=== PATIENT | male | born 1970 | race Caucasian/White ===

== ENCOUNTER 2019-04-06 19:39 | Emergency (ER) | payer OTHER ==
--- OUTSIDE RECORDS SUMMARY | 2019-04-06 19:41 | XMS REPORT | Continuity of Care Document ---
:1970 Author Organization [facility] Address [address] [place] [address] Phone Unavailable Care Team Providers Name Role Phone OTHER, ENTER NAME IN NOTES Primary Care Physician Unavailable Insurance Providers Guarantor Barrett Saucedo Address [address] [place] [address] Email [email or web address] Payer Self Pay Insurance Subscriber's Name Barrett Saucedo Relationship Self / Same As Patient Group Number NA Group Name NA Advance Directives Directive Response Recorded Date/Time Advance Directives No 01/17/15 1:59pm Advance Directive on File No 03/03/19 9:46pm Directive to Physicians/Living Will No 01/17/15 1:59pm Health Care Proxy No 01/17/15 1:59pm Name of Surrogate/Decision Maker NA 03/03/19 10:39pm Organ Donor No 01/17/15 1:59pm Medical Power of Crucible Furnace Tender No 01/17/15 1:59pm Patient/Family Given Education Material R/T Directives? Y - VV 03/03/19 10: 39pm Chief Complaint and Reason for Visit Chief Complaint HEENTL Reason for Visit Dental caries Dental abscess Pain, dental Problems Medical Problem Onset Date Status Abscess of nasal cavity Unknown Acute Backache Unknown Acute Chest pain Unknown Acute Pulmonary nodule Unknown Acute Past Problems Medical Problem Onset Date Status Acute gastritis without bleeding Unknown Acute Anxiety in acute stress reaction Unknown Acute Dental abscess Unknown Acute Dental caries Unknown Acute Pain, dental Unknown Acute Medications No medication information available. Social History Social History Problem Response Recorded Date/Time Onset Date Status Hx Physical Abuse No 03/03/2019 9:46pm Not Applicable Not Applicable Smoking Status Start Date Stop Date Current every day smoker Hospital Discharge Instructions No hospital discharge instruction information available. Plan of Care Discharge Date 03/04/19 12:20am Instructions/Education Provided Dental Abscess, [id number] Dental Caries, Adult, Fsem-[id number] Forms Provided Portal Welcome Letter Prescriptions See Medication Section Referrals OTHER,ENTER NAME IN NOTES Additional Instructions/Education GO TO DENTAL SCHOOL OR DENTAL CLINIC IN AM AMOXICILLIN 3 TIMES A DAY NAPROSYN WITH FOOD TWICE A DAY Functional Status No functional status information available. Allergies, Adverse Reactions, Alerts No known allergies. Immunizations No immunization information available. Vital Signs Acute Vital Signs Vital Response Date/Time Blood Pressure 140/84 mm Hg 03/04/2019 12:10am Pulse Pulse Rate (adult) 95 beats per minute (60 - 100) 03/04/2019 12:10am Respiratory Rate 20 breaths per minute (10 - 24) 03/04/2019 12:10am Temperature Source Oral 03/03/2019 9:46pm Height 6 ft 0 in 03/03/2019 9:46pm Weight 185 lb 03/03/2019 9:46pm Body Mass Index 25.1 kg/m^2 03/03/2019 9:46pm Results No relevant diagnostic test, laboratory data and/or discharge summary information available. Procedures No procedure information available. Encounters Encounter Location Arrival/Admit Date Discharge/Depart Date Attending Provider Departed [place] 03/03/19 9:41pm 03/04/19 12:20am [facility] Recent Diagnosis
[2019-04-06] MEDS ORDERED: DIPHENHYDRAMINE 50 MG/ML VIAL ONE (20:41)
[2019-04-06] MEDS ORDERED: ONDANSETRON 4 MG/2 ML VIAL ONE (20:42)
[2019-04-06] MEDS ORDERED: KETOROLAC 30 MG/ML INJ ONE (20:42)
--- NOTE | 2019-04-06 21:15 | RAD REPORT ---
EXAM DESCRIPTION: CT - Head Brain Wo Cont - 04/06/2019 8:39 pm CLINICAL HISTORY: Headache COMPARISON: 2016 TECHNIQUE: Computed axial tomography of the head was obtained. IV contrast was not requested. All CT scans are performed using dose optimization technique as appropriate and may include automated exposure control or mA/KV adjustment according to patient size. FINDINGS: Left parasellar aneurysm clips. Artifact from the clips mildly obscures detail in this re gion An intracranial bleed is not seen . The ventricles are normal in caliber. No extra-axial fluid collection is noted. Fluid within the sinuses/ mastoids is not seen. IMPRESSION: No acute intracranial abnormality is seen.
--- NOTE | 2019-04-06 22:02 | EDPHYS ---
Physician Documentation [facility] Name: Barrett Arias Age: 48 yrs Sex: Male : 1970 Arrival Date: 04/06/2019 Time: 19:43 Bed 30 Private MD: ED Physician Varun Templeton HPI: 04/07 04:39 This 48 yrs old Male presents to ER via Ambulatory with complaints of tw4 Headache. 04:39 The patient complains of pain to the forehead. The patient describes the headache as tw4 aching. Onset: The symptoms/episode began/occurred today. Associated signs and symptoms: The patient has no apparent associated signs or symptoms. Severity of symptoms: At its worst the pain was moderate. Headache History: The patient has had previous headaches and this one is similar to previous episodes. The symptoms are alleviated by nothing. the symptoms are aggravated by nothing. The patient has experienced similar episodes in the past, multiple times, chronically. Historical: - Allergies: 04/06 19:48 Phenergan; aj - Home Meds: 19:48 dilaudid 4 mg [Active]; aj - PMHx: 19:48 brain aneurysm; Hypertension; aj - PSHx: 19:48 brain surgery; aj - Immunization history:: Adult Immunizations up to date. - Social history:: Smoking status: Patient/guardian denies using tobacco. - Ebola Screening: : Patient negative for fever greater than or equal to 101.5 degrees Fahrenheit, and additional compatible Ebola Virus Disease symptoms Patient denies exposure to infectious person Patient denies travel to an Ebola-affected area in the 21 days before illness onset No symptoms or risks identified at this time. ROS: 04/07 04:39 Constitutional: Negative for fever, chills, and weight loss, Eyes: Negative for injury, tw4 pain, redness, and discharge, Cardiovascular: Negative for chest pain, palpitations, and edema, Respiratory: Negative for shortness of breath, cough, wheezing, and pleuritic chest pain, Abdomen/GI: Negative for abdominal pain, nausea, vomiting, diarrhea, and constipation, Back: Negative for injury and pain, MS/Extremity: Negative for injury and deformity. Neuro: Positive for headache, Negative for altered mental status, dizziness, gait disturbance, numbness, seizure activity, speech changes, syncope, near syncope, tinnitus, tremor. Exam: 04:39 Constitutional: This is a well developed, well nourished patient who is awake, alert, tw4 and in no acute distress. Head/Face: Normocephalic, atraumatic. Chest/axilla: Normal chest wall appearance and motion. Nontender with no deformity. No lesions are appreciated. Cardiovascular: Regular rate and rhythm with a normal S1 and S2. No gallops, murmurs, or rubs. Normal PMI, no JVD. No pulse deficits. Respiratory: Lungs have equal breath sounds bilaterally, clear to auscultation and percussion. No rales, rhonchi or wheezes noted. No increased work of breathing, no retractions or nasal flaring. Abdomen/GI: Soft, non-tender, with normal bowel sounds. No distension or tympany. No guarding or rebound. No evidence of tenderness throughout. Back: No spinal tenderness. No costovertebral tenderness. Full range of motion. MS/ Extremity: Pulses equal, no cyanosis. Neurovascular intact. Full, normal range of motion. 04:39 Neuro: Orientation: is normal, Mentation: is normal, Memory: is normal. Vital Signs: 04/06 19:48 BP 142 / 72; Pulse 79; Resp 18; Temp 98.5; Pulse Ox 100% on R/A; Weight 83.91 kg; aj Height 6 ft. 0 in. (182.88 cm); 22:01 BP 148 / 96; Pulse 73; Resp 17 S; Pulse Ox 100% on R/A; jd3 19:48 Body Mass Index 25.09 (83.91 kg, 182.88 cm) aj MDM: 20:31 Patient medically screened. tw4 04/07 04:39 Differential diagnosis: epidural hematoma, hypoglycemia, hyponatremia, meningitis, tw4 meningoencephalitis, migraine, trigeminal neuralgia, uremia. Data reviewed: vital signs, nurses notes. Counseling: I had a detailed discussion with the patient and/or guardian regarding: the historical points, exam findings, and any diagnostic results supporting the discharge/admit diagnosis, lab results, radiology results. Medication response: Toradol partially relieved the patient's pain, Response to treatment: and as a result, I will discharge patient. Special discussion: I discussed with the patient/guardian in detail that at this point there is no indication for admission to the hospital. It is understood, however, that if the symptoms persist or worsen the patient needs to return immediately for re-evaluation. 04/06 20:15 Order name: CT Head Brain wo Cont; Complete Time: 21:35 tw4 04/06 20:18 Order name: IV Saline Lock; Complete Time: 20:34 jd3 Administered Medications: 04/06 20:34 Drug: Benadryl 25 mg Route: IVP; Site: right antecubital; jd3 21:30 Follow up: Response: No adverse reaction jd3 20:34 Drug: Zofran 4 mg Route: IVP; Site: right antecubital; jd3 21:30 Follow up: Response: No adverse reaction jd3 20:35 Drug: TORadol 30 mg Route: IVP; Site: right antecubital; jd3 21:30 Follow up: Response: No adverse reaction jd3 21:58 Not Given (Patient Refused): Fioricet - Esgic 325 mg-40 mg-50 mg 1 tab-caps PO once jd3 Disposition: 04/06/19 22:01 Discharged to Home. Impression: Headache. - Condition is Stable. - Discharge Instructions: General Headache Without Cause. - Prescriptions for Ibuprofen 800 mg Oral Tablet - take 1 tablet by ORAL route every 8 hours As needed take with food; 30 tablet. - Medication Reconciliation Form, Thank You Letter, Antibiotic Education, Prescription Opioid Use form. - Follow up: Private Physician; When: Upon discharge from the Emergency Department; Reason: If symptoms return, Recheck today's complaints, Continuance of care. - Problem is new. - Symptoms have improved. Signatures: Dispatcher [employer] Alexus Zhao RN RN aj Davies, Jonathon, RN RN jd3 Wadley, Terrence, MD MD tw4 Corrections: (The following items were deleted from the chart) 22:12 22:01 04/06/2019 22:01 Discharged to Home. Impression: Headache. Condition is Stable. jd3 Forms are Medication Reconciliation Form, Thank You Letter, Antibiotic Education, Prescription Opioid Use. Follow up: Private Physician; When: Upon discharge from the Emergency Department; Reason: If symptoms return, Recheck today's complaints, Continuance of care. Problem is new. Symptoms have improved. tw4
--- NOTE | 2019-04-06 22:02 | ER ---
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 aj Reports taking Hyrdocodone FACTORY HELPER. Transition of care: patient was not received from another setting of care. Onset of symptoms was April 06, 2019. Risk Assessment: Do you want to hurt yourself or someone else? Patient reports no desire to harm self or others. Initial Sepsis Screen: Does the patient meet any 2 criteria? No. Patient's initial sepsis screen is negative. Does the patient have a suspected source of infection? No. Patient's initial sepsis screen is negative. Care prior to arrival: None. 19:46 Method Of Arrival: Ambulatory 19:46 Acuity: LUDIN 3 Triage Assessment: 19:48 Headache History: The patient has had previous headaches and this one is different than aj previous episodes. General: Appears in no apparent distress. comfortable, Behavior is calm, cooperative, appropriate for age. Pain: Complains of pain in left synagogue. Neuro: Level of Consciousness is awake, alert, obeys commands, Oriented to person, place, time, situation, Appropriate for age. Neuro: Reports headache in left. Respiratory: Airway is patent Respiratory effort is even, unlabored, Respiratory pattern is regular, symmetrical. Derm: Skin is intact, is healthy with good turgor, Skin is pink, warm \T\ dry. normal. 20:38 Pain: Pain at worst was 10 out of 10 on a pain scale. Pain began suddenly, Also jd3 complains of nausea. Historical: - Allergies: 19:48 Phenergan; aj - Home Meds: 19:48 dilaudid 4 mg [Active]; aj - PMHx: 19:48 brain aneurysm; Hypertension; aj - PSHx: 19:48 brain surgery; aj - Immunization history:: Adult Immunizations up to date. - Social history:: Smoking status: Patient/guardian denies using tobacco. - Ebola Screening: : Patient negative for fever greater than or equal to 101.5 degrees Fahrenheit, and additional compatible Ebola Virus Disease symptoms Patient denies exposure to infectious person Patient denies travel to an Ebola-affected area in the 21 days before illness onset No symptoms or risks identified at this time. Screenin:37 Abuse screen: Denies threats or abuse. Nutritional screening: No deficits noted. jd3 Tuberculosis screening: No symptoms or risk factors identified. Fall Risk Ambulatory Aid- None/Bed Rest/Nurse Assist (0 pts). Gait- Normal/Bed Rest/Wheelchair (0 pts) Mental Status- Oriented to own ability (0 pts). Total Miles Fall Scale indicates No Risk (0-24 pts). Assessment: 20:36 General: Appears in no apparent distress. uncomfortable, Behavior is calm, cooperative, jd3 appropriate for age. Pain: Complains of pain in head Quality of pain is described as aching, sharp. Neuro: Level of Consciousness is awake, alert, obeys commands, Oriented to person, place, time, situation, Appropriate for age. Cardiovascular: Capillary refill < 3 seconds Patient's skin is warm and dry. Respiratory: Airway is patent Respiratory effort is even, unlabored, Respiratory pattern is regular, symmetrical. GI: No signs and/or symptoms were reported involving the gastrointestinal system. : No signs and/or symptoms were reported regarding the genitourinary system. EENT: No signs and/or symptoms were reported regarding the EENT system. Derm: Skin is intact, Skin is dry, Skin is normal, Skin temperature is warm. Musculoskeletal: Circulation, motion, and sensation intact. Range of motion: intact in all extremities. 21:35 Reassessment: Patient and/or family updated on plan of care and expected duration. Pain jd3 level reassessed. Patient is alert, oriented x 3, equal unlabored respirations, skin warm/dry/pink. pt reported continued pain in head, provider notified. no new orders at this time. 22:01 Reassessment: Patient appears in no apparent distress at this time. No changes from jd3 previously documented assessment. Patient and/or family updated on plan of care and expected duration. Pain level reassessed. Patient is alert, oriented x 3, equal unlabored respirations, skin warm/dry/pink. 22:11 Reassessment: Patient appears in no apparent distress at this time. Patient and/or jd3 family updated on plan of care and expected duration. Pain level reassessed. Patient is alert, oriented x 3, equal unlabored respirations, skin warm/dry/pink. report understanding of discharge instructions. Vital Signs: 19:48 BP 142 / 72; Pulse 79; Resp 18; Temp 98.5; Pulse Ox 100% on R/A; Weight 83.91 kg; aj Height 6 ft. 0 in. (182.88 cm); 22:01 BP 148 / 96; Pulse 73; Resp 17 S; Pulse Ox 100% on R/A; jd3 19:48 Body Mass Index 25.09 (83.91 kg, 182.88 cm) aj ED Course: 19:43 Patient arrived in ED. aj 19:47 Triage completed. aj 19:48 Arm band placed on left wrist. Patient placed in an exam room. aj 19:49 James Geller, RN is Primary Nurse. la1 19:56 Varun Templeton MD is Attending Physician. tw4 20:[address] mw3 20:25 Inserted saline lock: 20 gauge in right forearm, using aseptic technique. jd3 20:36 Primary Nurse role handed off by James Geller, RN jd3 20:36 Jimbo Alexandra, TANA is Primary Nurse. jd3 20:37 Patient has correct armband on for positive identification. Bed in low position. Call jd3 light in reach. Side rails up X 1. Adult w/ patient. 20:39 CT Head Brain wo Cont In Process Unspecified. EDMS 20:40 CT completed. Patient tolerated procedure well. Patient moved back from CT. mw3 22:03 No provider procedures requiring assistance completed. jd3 22:12 IV discontinued, intact, bleeding controlled, No redness/swelling at site. Pressure jd3 dressing applied. Administered Medications: 20:34 Drug: Benadryl 25 mg Route: IVP; Site: right antecubital; jd3 21:30 Follow up: Response: No adverse reaction jd3 20:34 Drug: Zofran 4 mg Route: IVP; Site: right antecubital; jd3 21:30 Follow up: Response: No adverse reaction jd3 20:35 Drug: TORadol 30 mg Route: IVP; Site: right antecubital; jd3 21:30 Follow up: Response: No adverse reaction jd3 21:58 Not Given (Patient Refused): Fioricet - Esgic 325 mg-40 mg-50 mg 1 tab-caps PO once jd3 Outcome: 22:01 Discharge ordered by . tw4 22:11 Discharged to home ambulatory, with family. jd3 22:11 Condition: stable 22:11 Discharge instructions given to patient, family, Instructed on discharge instructions, follow up and referral plans. medication usage, Demonstrated understanding of instructions, follow-up care, medications, Prescriptions given X 1. 22:12 Patient left the ED. jd3 Signatures: Dispatcher [employer] EDAlexus Mitchell RN RN aj Attema, Lee, RN RN la1 Jimbo Alexandra RN RN jd3 Wadley, Terrence, MD MD tw4 Doris Martin mw3
[2019-04-06] MEDS ORDERED: ACETAMIN/CAFFEINE/BUTALB TAB PO ONE (22:06)
== END 2019-04-06 22:12 | disposition home or self-care (01) ==
LOC: ER 19:39
DX: R51 Headache (principal); I10 Essential (primary) hypertension
CPT/HCPCS: 70450; 96375; 96374; 99284; J2405